=== PATIENT | male | born 1975 | race Caucasian/White ===

== ENCOUNTER 2021-06-03 09:23 | Emergency (ER) | payer BC ==
[2021-06-03 09:57] VITALS: TEMP 97.5; BMI 31.2
[2021-06-03] MEDS ORDERED: CASIRIVIMAB/IMDEVIMAB 10 ML in SODIUM CHLORIDE 100 ML IVPB ONE (10:01)
[2021-06-03 11:53] LABS: HEMATOCRIT 43.1 % (35.4-49); HEMOGLOBIN 14.8 GM/dL (11.7-16.9); MCH 31.7 pg (25.7-33.7); MCHC 34.4 g/dl (32.0-35.9); MEAN CELL VOLUME 92.1 fl (80-96); MEAN PLT VOLUME 7.3 fl (7.5-11.1); PLATELET COUNT 342 10^3/uL (134-434); RBC 4.68 M/mm3 (4.00-5.60); RDW 13.5 % (11.9-15.9); WHITE BLOOD COUNT 7.3 K/mm3 (4.0-10.0)
[2021-06-03 12:28] LABS: CALCIUM 9.3 mg/dL (8.5-10.1)
[2021-06-03 12:29] LABS: BLOOD UREA NITROGEN 18.5 mg/dL (7-18)
[2021-06-03 12:49] VITALS: BP 109/81; PULSE 67
== END 2021-06-03 12:49 | disposition home or self-care (01) ==
LOC: JCOVINFU 09:23
DX: U07.1 COVID-19 (principal)
CPT/HCPCS: 36415; 80048; 85027; 99284-25; C9803; Q0240; U0003; U0005